=== PATIENT | female | born 1935 | race Caucasian/White ===

== ENCOUNTER → 2016-08-29 | Outpatient (CLI) | payer MEDICARE, OTHER ==
[~2016-08-29] MED LIST: ASPIRIN E.C. 8181 MG PO; BACTRIM 400 MG-1 TA1 PO; CEPHALEXIN500 M1 PO; LORTAB 5/500 501 TAB PO; MUPIROCIN2% TP
== END ==
LOC: COL.VAS 08:28
DX: M79.604 Pain in right leg (principal)

== ENCOUNTER 2018-08-09 23:42 | Emergency (ER) | payer MEDICARE, OTHER ==
[~2018-08-09] VITALS: Ht 167.6 cm; Wt 73.2 kg
[2018-08-09 23:58] VITALS: TEMP 97.6
[2018-08-10] MEDS ORDERED: [UNRECOGNIZED DRUG - REMARK] (00:09)
[2018-08-10] MEDS ORDERED: FLEXERIL 1010 MG/TAB PO (00:22)
[2018-08-10 00:41] LABS: BASO # 0.1 (0.0-0.2); BASO % 0.7 % (0.0-2.0); EOS # 0.2 (0.0-0.7); EOS % 2.4 % (0-4.0); GRAN # 5.2 (1.4-6.5); GRAN % 62.5 % (42.2-75.2); HEMATOCRIT 40.3 % (37.0-47.0); HEMOGLOBIN 12.9 g/dl (12.5-16.0); LYMPH # 1.9 (1.2-3.4); LYMPH % 22.6 % (20.0-51.0); MEAN CELL VOLUME 94 fl (80.0-100.0); MEAN CORPUSCULAR HEMOGLOBIN 30 pg (27.0-31.0); MEAN CORPUSCULAR HGB CONC 32 g/dl (33.0-37.0); MONO # 0.9 (0.1-0.6); MONO % 11.2 % (1.7-9.3); PLATELET COUNT 265 K/mm3 (130-400); RED BLOOD COUNT 4.31 M/mm3 (4.10-5.30); REDCELL DISTRIBUTION WIDTH-CV 12.8 % (11.5-14.5)
[2018-08-10 00:51] LABS: ALANINE AMINOTRANSFERASE 13 U/L (9-52); ALBUMIN 3.9 gm/dL (3.5-5.0); ALKALINE PHOSPHATASE 61 U/L (50-136); ANION GAP 9 mmol/L (7-16); AST,SGOT 20 U/L (15-37); BILIRUBIN,TOTAL 0.6 mg/dL (0.0-1.0); BLOOD UREA NITROGEN 50 mg/dL (7-17); CALCIUM 9.2 mg/dL (8.4-10.2); CARBON DIOXIDE 24 mmol/L (22-30); CHLORIDE 109 mmol/L (98-107); GLUCOSE 94 mg/dL (74-106); POTASSIUM 4.1 mmol/L (3.4-5.0); SODIUM 142 mmol/L (137-145); TOTAL PROTEIN 7.3 gm/dL (6.4-8.2)
[2018-08-10 01:06] LABS: TROPONIN-I < 0.012 ng/mL (0.000-0.035)
[2018-08-10 04:05] VITALS: BP 108/74; PULSE 85
[2018-08-11] MEDS ORDERED: BENICAR HCT 12.1 TA1 PO (17:05)
[2018-08-11] MEDS ORDERED: ALEVE 220MG220 MG PO (17:06)
[2018-08-11] MEDS ORDERED: NORCO 325 MG-51 TAB PO (18:33)
== END 2018-08-10 04:05 | disposition home or self-care (01) ==
LOC: COL.ER 23:42
PROVIDERS: Emergency Medicine
DX: M54.6 Pain in thoracic spine (principal); Z90.710 Acquired absence of both cervix and uterus
CPT/HCPCS: J2270; J7030

== ENCOUNTER 2018-08-11 15:11 | Emergency (ER) | payer MEDICARE, OTHER ==
[~2018-08-11] VITALS: Ht 167.6 cm; Wt 73.2 kg
[~2018-08-11 15:11] MED LIST changes: +FLEXERIL 1010 MG/TAB PO; +[UNRECOGNIZED DRUG - REMARK]
[2018-08-11 15:21] VITALS: BP 101/59; PULSE 89; TEMP 98
[2018-08-11] MEDS ORDERED: BENICAR HCT 12.1 TA1 PO (17:05)
[2018-08-11] MEDS ORDERED: ALEVE 220MG220 MG PO (17:06)
[2018-08-11] MEDS ORDERED: NORCO 325 MG-51 TAB PO (18:33)
== END 2018-08-11 18:52 | disposition home or self-care (01) ==
LOC: COL.ER 15:11
DX: M54.6 Pain in thoracic spine (principal); I10 Essential (primary) hypertension; Z90.710 Acquired absence of both cervix and uterus